=== PATIENT | female | born 1950 ===

== ENCOUNTER → 2020-10-11 13:13 | Outpatient (CLI) | payer OTHER, SELFPAY ==
[2020-10-11 19:00] LABS: Amylase 74 U/L (30-110); Gamma Glutamyl Transpeptidase 21 U/L (12-43)
== END ==
PROVIDERS: PCP Family Medicine; Visit Provider Family Medicine
DX: F10.10 Alcohol abuse, uncomplicated (principal); R52 Pain, unspecified
CPT/HCPCS: 82150; 82977